=== PATIENT | female | born 2000 | race Caucasian/White ===

== ENCOUNTER 2019-09-23 07:01 | Emergency (ER) | payer OTHER ==
--- NOTE | 2019-09-23 07:17 | UC ---
Hand/Wrist HPI - HPI Summary HPI Summary: Patient presents to urgent care for evaluation of persistent pain in her left wrist. Patient states she first noticed after swimming about 10 days ago when she was really hard. Patient's insistence that time she has discomfort in the dorsum of her left wrist. Patient states it radiates to her mid left forearm medial aspect. Patient denies any weakness or paresthesias. Patient denies any direct trauma. Patient has been seen by the trainers at school and has been having stimulation treatment was mild improvement. Patient has not taken any analgesic. Patient has a significant meet coming up in 2 weeks and wanted to make sure there was no bony injury or fracture. Patient is right-hand dominant. Patient states she notices it most when she twists her wrist back for example putting on her backpack. Patient's medications as altered EMR by triage was reviewed this visit. - History Of Current Complaint Stated Complaint: LEFT WRIST PAIN Hx Last Menstrual Period: 05/31/16 ?: No Onset/Duration: Gradual Onset, Lasting Weeks Severity Initially: Mild Severity Currently: Mild - Allergies/Home Medications Allergies/Adverse Reactions: Allergies Allergy/AdvReac Type Severity Reaction Status Date / Time No Known Allergies Allergy Verified 09/23/19 07:23 Home Medications: Home Medications Cbd 1 dose PO DAILY PRN 09/23/19 [History Confirmed 09/23/19] PMH/Surg Hx/FS Hx/Imm Hx Previously Healthy: Yes - Surgical History Surgical History: None - Family History Known Family History: Positive: Other - increased lipid, Non-Contributory Negative: Cardiac Disease, Hypertension, Diabetes - Social History Occupation: Student Lives: Dormitory/Roommates Alcohol Use: None Substance Use Type: None Smoking Status (MU): Never Smoked Tobacco Review of Systems All Other Systems Reviewed And Are Negative: Yes Cardiovascular: Positive: Negative Motor: Positive: Other - left wrist pain Neurovascular: Positive: Negative Physical Exam - Summary Physical Exam Summary: Vital Signs Reviewed: Yes A+Ox3, no distress Eyes: Conjunctiva Clear ENT: Hearing grossly normal neck: supple Respiratory: Positive: No respiratory distress, No accessory muscle use Cardiovascular: skin color reflect adequate perfusion 2+ radial, 2+ ulna, cbt < 2 sec Musculoskeletal Exam: ESTRADA x 4 without difficulty + flex/ext elbow, + pronate/ supinate + TTP dorsum left wrist, medial aspect no crepitus no pain along carpals, MT, phalanges pain with medial strain and hyperextension no snuffbox pain Neurological: Positive: Alert, ambulatory without difficulty + thumb up, a ok, finger spread, finger cross 5/5 grasp Psychological: Positive: Normal Response To proivder Skin: Positive: no rash, no ecchymosis Triage Information Reviewed: Yes Diagnostics - Radiology No standard instances Radiology Interpretation Completed By: Radiologist - Patient Name: ROSIO GUILLEN Medical Record#: [id number] Ordering Physician: Katrin Fernandez MD Acct.#: [id number] : 2000 Age: 19 Sex: F Location: [facility] Exam Date: 09/23/19731 ADM Status: REG ER Order Information: WRIST LEFT 3+ VWS Accession Number: [id number] CPT: 93232 INDICATION: Atraumatic left wrist pain. TECHNIQUE: 3 views of the left wrist were obtained. FINDINGS: There is ulnar minus variance of 5 mm. The bones are otherwise in normal alignment. No fracture is seen. Joint spaces appear maintained. No significant arthritic change is noted. IMPRESSION: ULNAR MINUS VARIANCE, OTHERWISE UNREMARKABLE STUDY. <Electronically signed by Obed Caicedo MD in OV> 02/04 0750 Dictated By: Obed Caicedo MD Dictated Date/Time: 09/23/19748 Transcribed Date/Time: 09/23/19748 Copy to: CC:Katrin Fernandez MD; No Primary Care Phys,[facility] Imaging - [facility] - [place] [facility] [address] [place] [address] ph ([phone]) ph ([phone]) ph ([phone]) This report is only to be considered final once signed by the Provider(s) as displayed in the "<Electronically Signed by >" field (s). Absence of a signature indicates the report is in a draft status and still needs to be finalized. In the event this document was created by someone other than the signing Provider, the individual initiating the document will be listed in the "Entered by:" or "Dictated by:" gastelum. 1 of 1 Re-Evaluation - Re-Evaluation First Eval Comment: reviewed imaging results with pt. naun place in splint. f/u tomorow 9: 45am Dr. Ibarra. pt appreciative and agreement Hand/Wrist Course/Dx - Course Course Of Treatment: Patient presents to urgent care for evaluation of left wrist pain it's been persistent for about 10 days patient patient's itchiness after swim meet when she swam [place] patient is a trauma. Patient is right-hand dominant. Pain is worse with certain movements including extension of the wrist. Patient without any weakness or peristasis. On exam vital signs are stable. Patient's have point tenderness on the dorsal lateral aspect of the wrist. No crepitus. Patient distal CSM intact. Patient concerned she has a bony injury. We'll check imaging. This is negative we'll place patient in splint. Patient states she'll continue to follow up with principal trainer at school abd declined offer for follow-up with sports medicine. Encouraged patient take ibuprofen. Patient comfortable and plan. - Differential Dx/Diagnosis Provider Diagnosis: Left wrist pain Discharge ED - Sign-Out/Discharge Documenting (check all that apply): Patient Departure All imaging exams completed and their final reports reviewed: Yes - Discharge Plan Condition: Stable Disposition: HOME Patient Education Materials: Wrist Injury (ED), Tendinitis (ED) Referrals: Hunter Ibarra MD [Medical Doctor] - (10:30am tomorrow, 09/24/2019. Please arrive 15 minutes early for paperwork [address] [phone]) Additional Instructions: - wear splint for comfort and support - Okay to alternate ibuprofen (Advil, Motrin) and Tylenol (acetaminophen) every 3 hours for pain or fever. Take with food. Do NOT take for more than 4-5 days. - apply ice or heat for discomfort - follow- closely with principal trainer at school - you have also been given contact information for a sport medicine specialist - If you develop hand weakness, uncontrolled pain or any concerns it is recommended you be - re-evaluated - you have an appointment with Dr. Ibarra, hand rn outpatient surgery, at 10:30am tomorrow morning at the [place] office - Billing Disposition and Condition Condition: STABLE Disposition: Home
[2019-09-23 07:23] VITALS: BP 106/58
== END 2019-09-23 08:13 | disposition home or self-care (01) ==
LOC: UCCORT 07:01
DX: M25.532 Pain in left wrist (principal)
CPT/HCPCS: 99212; G0463